=== PATIENT | male | born 1945 | race Caucasian/White ===

== ENCOUNTER 2019-09-03 13:19 | Inpatient (IN) | payer MEDICARE ==
[2019-09-03] VITALS (120 sets, daily range): BP systolic 98–130; BP diastolic 74–113; PULSE 97–153; TEMP 97.6–98.8; O2SAT 94–100
[~2019-09-03] VITALS: Ht 195.6 cm; Wt 119.2 kg
[~2019-09-03 13:19] MED LIST: ASPIRIN E.C. 8181 MG PO; ELIQUIS 5MG PO; NO HOME MEDICATIONS; PRAVACHOL80 MG PO; PROTONIX 40MG T40 MG PO; TAMBOCOR50 MG PO; ZYLOPRIM 300MG300 MG PO
[2019-09-03] MEDS ORDERED: COUMADIN 3MG3 MG/TAB PO (14:53)
[2019-09-03] MEDS ORDERED: PROTONIX 40MG T40 MG PO (14:57)
[2019-09-03 14:58] LABS: ALBUMIN 4.2 gm/dL (3.5-5.0); BILIRUBIN,TOTAL 0.5 mg/dL (0.0-1.0); CALCIUM 9.2 mg/dL (8.4-10.2); CREATININE, serum 1.56 (0.66-1.25); POTASSIUM 4.2 mmol/L (3.4-5.0); TOTAL PROTEIN 7.6 gm/dL (6.4-8.2)
[2019-09-03] MEDS ORDERED: CHLOR TRIMETON 44 MG PO (15:00)
[2019-09-03] MEDS ORDERED: PRINZIDE 25 MG-1 TAB PO (15:02)
[2019-09-03 15:03] LABS: BASO # 0.1 (0.0-0.2); BASO % 1.3 % (0.0-2.0); EOS # 0.3 (0.0-0.7); EOS % 3.5 % (0-4.0); GRAN % 51.4 % (42.2-75.2); HEMATOCRIT 42.1 % (42.0-52.0); HEMOGLOBIN 12.8 g/dl (13.5-18.0); LYMPH # 2.5 (1.2-3.4); LYMPH % 32.5 % (20.0-51.0); MEAN CELL VOLUME 88 fl (80.0-100.0); MEAN CORPUSCULAR HEMOGLOBIN 27 pg (27.0-31.0); MEAN CORPUSCULAR HGB CONC 30 g/dl (33.0-37.0); MEAN PLATELET VOLUME 11.6 fl (7.4-10.4); MONO # 0.9 (0.1-0.6); PLATELET COUNT 238 K/mm3 (130-400); RED BLOOD COUNT 4.79 M/mm3 (4.20-5.60); REDCELL DISTRIBUTION WIDTH-CV 17.2 % (11.5-14.5)
[2019-09-03 15:20] LABS: INR 1.6 (0.8-3.0)
[2019-09-04] VITALS (679 sets, daily range): BP systolic 100–129; BP diastolic 69–121; PULSE 14–139; TEMP 97.7–98.2; O2SAT 78–100
[2019-09-05] VITALS (180 sets, daily range): BP systolic 111–114; BP diastolic 71–98; PULSE 84–107; TEMP 97.7–98.1; O2SAT 81–100
[2019-09-05 05:25] LABS: INR 1.5 (0.8-3.0); PROTHROMBIN TIME 17.2 SECONDS (9.7-12.8)
[2019-09-05] MEDS ORDERED: NORCO 325 MG-101 TAB PO (09:05)
[2019-09-05] MEDS ORDERED: CHLOR TRIMETON 44 MG PO (09:06)
[2019-09-05] MEDS ORDERED: LASIX 40MG TABL40 MG PO (09:07)
[2019-09-05] MEDS ORDERED: TOPROL XL 25MG25 MG PO (09:08)
[2019-09-05] MEDS ORDERED: PACERONE200 MG PO (09:08)
== END 2019-09-05 10:25 | disposition home or self-care (01) | DRG 309 ==
LOC: IMCU 13:19
PROVIDERS: ADMIT Family Medicine
PROC: 5A2204Z Restoration of Cardiac Rhythm, Single (ICD-10-PCS; principal; 2019-09-04)
DX: I48.20 Chronic atrial fibrillation, unspecified (principal); N17.9 Acute kidney failure, unspecified; I25.10 Atherosclerotic heart disease of native coronary artery without angina pectoris; Z95.5 Presence of coronary angioplasty implant and graft; M19.90 Unspecified osteoarthritis, unspecified site; I10 Essential (primary) hypertension; Z86.73 Personal history of transient ischemic attack (TIA), and cerebral infarction without residual deficits; Z79.01 Long term (current) use of anticoagulants
CPT/HCPCS: J0282; J2704; J7030; J7060

== ENCOUNTER 2023-05-01 22:40 | Inpatient (IN) | payer MEDICARE ==
[~2023-05-01] VITALS: Ht 195.6 cm; Wt 114.2 kg
[~2023-05-01 22:40] MED LIST changes: +AMOXICILLIN 8751 TAB PO; +CHLOR TRIMETON 44 MG PO; +CORDARONE200 MG/TAB PO; +COUMADIN 3MG3 MG/TAB PO; +CRESTOR 10MG10 MG PO; +GOOD SENSE400 MG/5 M PO; +IMODIUM A-D2 MG PO; +K-DUR 10 MEQ T10 MEQ PO; +LASIX 40MG TABL40 MG PO; +LIPITOR 40MG TA40 MG PO; +LOPRESSOR 550 MG/TAB PO; +MAG-AL LIQUID 230 ML PO; +MASON NATURAL2000 IU PO; +MULTI VITAMINS1 TAB PO; +NORCO 325 MG-101 TAB PO; +PACERONE200 MG PO; +PEPCID 20MG TAB20 MG PO; +PLAVIX 75MG TAB75 MG PO; +PRINIVIL20 MG PO; +PRINZIDE 25 MG-1 TAB PO; +PROAIR HFA0.09 MG/AC IH; +PULMICORT0.5 MG/2 M IH; +TENORMIN 2525 MG/TAB PO; +TOPROL XL 25MG25 MG PO; +TOPROL XL 50MG50 MG PO; +TYLENOL 325MG325 MG PO; +TYLENOL 500MG500 MG PO; +ULTRAM 50MG TAB50 MG PO; +XALATAN EYE DROPS OD; +XARELTO20 MG PO; +ZITHROMAX 250M250 MG PO; +ZYLOPRIM 100MG100 MG PO; -ZYLOPRIM 300MG300 MG PO; +ZYRTEC 10MG10 MG PO
[2023-05-01] MEDS ORDERED: NS 74 ML IV SCH (22:41)
[2023-05-01] MEDS ORDERED: Iohexol 300 - 100 ML VIAL IV ONE (22:41)
[2023-05-01 23:50] LABS: COLLECTION METHOD CLEAN CATCH
[2023-05-02] VITALS (1053 sets, daily range): BP systolic 102–159; BP diastolic 72–97; PULSE 89–126; TEMP 97–98.6; O2SAT 66–100
[2023-05-02 00:10] LABS: BASO % 0.3 % (0.0-2.0); EOS # 0.1 K/mm3 (0.0-0.7); EOS % 0.4 % (0.0-4.0); GRAN # 9.8 K/mm3 (1.4-6.5); GRAN % 73.7 % (42.2-75.2); HEMATOCRIT 47.2 % (42.0-52.0); HEMOGLOBIN 15.3 g/dl (13.5-18.0); LYMPH # 2.4 K/mm3 (1.2-3.4); LYMPH % 18.4 % (20.0-51.0); MEAN CELL VOLUME 92 fl (80.0-100.0); MEAN CORPUSCULAR HEMOGLOBIN 30 pg (27-31); MEAN CORPUSCULAR HGB CONC 32 g/dl (33.0-37.0); MEAN PLATELET VOLUME 11.3 fl (7.4-10.4); MONO # 0.9 K/mm3 (0.1-0.6); MONO % 6.9 % (1.7-9.3); PLATELET COUNT 184 K/mm3 (130-400); RED BLOOD COUNT 5.12 M/mm3 (4.20-5.60); REDCELL DISTRIBUTION WIDTH-CV 14.6 % (11.5-14.5)
[2023-05-02 00:10] LABS: TRICYCLIC ANTIDEPRESS URINE NEGATIVE (NEGATIVE)
[2023-05-02 00:12] LABS: PH 5.5 (5.0-8.5); SQUAMOUS EPITHELIAL 0-2 /hpf (0-10); URINE APPEARANCE Clear (CLEAR/HAZY); URINE BACTERIA Rare /hpf (NONE SEEN); URINE BLOOD TRACE-INTACT (NEGATIVE); URINE COLOR Yellow (YELLOW); URINE GLUCOSE TRACE (NEGATIVE); URINE KETONE TRACE (NEGATIVE); URINE NITRATE Negative (NEGATIVE); URINE PROTEIN(semi-quant) 1+ (NEGATIVE); URINE UROBILINOGEN 0.2 E.U/dL (0.2-1.0)
[2023-05-02] MEDS ORDERED: MULTIPLE VITAMI1 CAP PO (00:21)
[2023-05-02 00:22] LABS: PARTIAL THROMBOPLASTIN TIME 27.6 SECONDS (26.0-37.0)
[2023-05-02] MEDS ORDERED: ATROVENT I0.2 MG/1 M IH (00:22)
[2023-05-02] MEDS ORDERED: ALBUTEROL0.83 MG/ML IH (00:23)
[2023-05-02] MEDS ORDERED: Albuterol 0.083% Neb Soln 2.5 MG/3 ML UD IH PRN (00:30)
[2023-05-02 00:34] LABS: ALANINE AMINOTRANSFERASE 18 U/L (0-55); ALBUMIN 3.3 gm/dL (3.4-4.8); ALKALINE PHOSPHATASE 105 U/L (40-150); ANION GAP 15 mmol/L (7-16); AST,SGOT 16 U/L (5-34); BILIRUBIN,TOTAL 0.5 mg/dL (0.2-1.2); BLOOD UREA NITROGEN 19 mg/dL (8-26); CALCIUM 8.8 mg/dL (8.4-10.2); CARBON DIOXIDE 16 mmol/L (23-31); CHLORIDE 106 mmol/L (98-107); CREATININE, serum 1.68 mg/dL (0.72-1.25); GLUCOSE 212 mg/dL (70-99); POTASSIUM 3.8 mmol/L (3.5-4.5); SODIUM 137 mmol/L (136-145); TOTAL PROTEIN 7.2 gm/dL (6.2-8.1)
[2023-05-02 00:35] LABS: ALCOHOL(ethanol),MEDICAL < 10 mg/dL (0-10)
[2023-05-02 00:40] LABS: TROPONIN-I 0.015 ng/mL (0.00-0.033)
[2023-05-02 00:53] LABS: ARTERIAL BLD GAS O2 SATURATION 92.6 % (92-100); ARTERIAL BLD GAS TCO2 CT 22.6; ARTERIAL BLOOD GAS BASE EXCESS -5.1 (-2-2); ARTERIAL BLOOD GAS HCO3 21.3 meq/L (22-26); ARTERIAL BLOOD GAS PCO2 44.1 mmHg (35-45)
[2023-05-02] MEDS ORDERED: *Potassium Replacement Protocol MC SCH (02:00)
[2023-05-02] MEDS ORDERED: Potassium Chloride 100 ML IV SCH ×2 (02:00→04:15)
--- NOTE | 2023-05-02 02:06 | NUR ---
PATIENT ARRIVED TO UNIT WITH AGENTS' RECORDS CLERK VIA COT. PATIENT NOT IN ACUTE DISTRESS AT THIS TIME AND ABLE TO ROLL FOR US TO GET SLIDE BOARD UNDER. A AND O X 4.
[2023-05-02] MEDS ORDERED: Albuterol/Ipratropium 3 MG-0.5 MG/3 ML Neb Soln IH PRN (02:15)
[2023-05-02] MEDS ORDERED: LR 1,000 ML IV SCH (02:30)
[2023-05-02] MEDS ORDERED: SENEXON-S 50-81 EACH PO (02:49)
--- NOTE | 2023-05-02 03:43 | NUR ---
PATIENT DOES NOT APPEAR TO BE IN ACUTE DISTRESS AT THIS TIME. PATIENT IS ALERT AND ORIENTED X4 AND ABLE TO COMPLETE NIH STROKE SCALE. LUNGS ARE COARSE - AUDIBLE RATTLE HEARD AT BEDSIDE. STROKE WORKUP IN PROGRESS.
[2023-05-02 06:05] LABS: HEMATOCRIT 45.9 % (42.0-52.0); HEMOGLOBIN 14.9 g/dl (13.5-18.0); MEAN CELL VOLUME 92 fl (80.0-100.0); MEAN CORPUSCULAR HEMOGLOBIN 30 pg (27-31); MEAN CORPUSCULAR HGB CONC 33 g/dl (33.0-37.0); MEAN PLATELET VOLUME 11.4 fl (7.4-10.4); PLATELET COUNT 180 K/mm3 (130-400); REDCELL DISTRIBUTION WIDTH-CV 14.8 % (11.5-14.5)
[2023-05-02 06:18] LABS: CALCIUM 8.7 mg/dL (8.4-10.2); CREATININE, serum 1.76 mg/dL (0.72-1.25); POTASSIUM 4.6 mmol/L (3.5-4.5)
[2023-05-02 06:30] LABS: HYPOCHROMIA 1+; LYMPHOCYTE 5 % (20.0-51.0); NEUTROPHILS 90 % (42.0-75.2); PLATELET ESTIMATE NORMAL (NORMAL)
[2023-05-02] MEDS ORDERED: Ipratropium 0.02% Neb Soln 0.5 MG/2.5 ML UD IH SCH (07:00)
--- NOTE | 2023-05-02 07:30 | NUR ---
Report received from ABELARDO So. Reviewed labs. reviewed IV gtts infusing. Reviewed POC. Pt resting in bed with eyes closed. Call light within reach. Will continue with POC.
[2023-05-02] MEDS ORDERED: Ondansetron 4 MG/2 ML VIAL IV PRN (07:45)
[2023-05-02] MEDS ORDERED: Albuterol/Ipratropium 3 MG-0.5 MG/3 ML Neb Soln IH SCH (08:00)
[2023-05-02] MEDS ORDERED: Cholecalciferol (Vit D3) 1000 Units TAB PO SCH (09:00)
[2023-05-02] MEDS ORDERED: Influenza Virus Vaccine, Hi-Dose Quad '23-24 (65 YR+) 0.7 ML SYRINGE IM SCH (09:00)
[2023-05-02] MEDS ORDERED: Famotidine 20 MG TAB PO SCH (09:00)
[2023-05-02] MEDS ORDERED: Allopurinol 100 MG TAB PO SCH (09:00)
[2023-05-02] MEDS ORDERED: Multivitamin TAB PO SCH (09:00)
[2023-05-02] MEDS ORDERED: Amiodarone 200 MG TAB PO SCH (09:00)
--- NOTE | 2023-05-02 10:38 | NUR ---
Senior Patient Account Representative attempted to meet with patient at bedside, however patient kept his eyes closed and stated "bad" when SW asked how he was doing. Patient would like to rest at this time. SW contacted patient's son, Quang (ph#[phone]) to complete initial intake. Patient lives with Quang here in [place] and sees Dr. Monreal for primary care. Quang picks up patient's medications from [facility] as patient cannot drive. Patient mostly uses a walker for ambulation, however also has a wheelchair at home. Patient needs some assistance with ADLS and has a private duty caregiver, Clarita who comes to the home five days a week for three hours. Quang advised they may be interested in having skilled home health services again through [facility]. Patient does not have DPOA-HC. Quang advised patient is not and only has one child, Quang. Discharge Plan: TBD
[2023-05-02] MEDS ORDERED: Magnesium Sulfate 2 GM/50 ML IV SOLN IV ONE (10:45)
--- NOTE | 2023-05-02 12:53 | NUR ---
Pt left floor for MRI at 1113. Pt heavy 2 assist to chair. Pt returned from MRI at 1140 and returned to floor. Pt going to have MARVIN/Cardioversion. Consent obtained from pt son, Quang. Pt remains NPO for procedure. Pt continues to have left sided facial droop and left sided weakness. Pt is oriented x3. Knows he is in the hospital in [place] but does not know why. Pt states he is "sick". Pt initally stated it was the year 2022 but quickly chnaged his response. Fall precuations in place. Bed alarm activated. Call light within reach. Will continue with POC.
--- NOTE | 2023-05-02 14:14 | NUR ---
Time out completed. Procdure started at 1343. No cardioversion completed. MARVIN completed at 1348. Vital signs remain stable throughout procedure. Post op vital sings being monitored.
--- NOTE | 2023-05-02 18:37 | NUR ---
Pt has not voided in several hours, bladder scan completed, pt had 357ml in bladder. Pt denies feeling the urge to void.
--- NOTE | 2023-05-02 20:00 | NUR ---
BEDSIDE REPORT RECEIVED FROM ABELARDO WILLSON PT RESTING IN BED AND IS A&O AT THIS TIME. PT SITTING UP AND ON 1L VIA NC AT THIS TIME WITH O2SAT WNL. ASSESSMENTS COMPLETED AT THIS TIME AND PATIENT ASSISTED WITH EATING APPLESAUCE- NO ISSUES WITH SWALLOWING NOTED. CARE PLAN REVIEWED, ALL QUESTIONS ANSWERED, BED IN LOW POSITION, AND CALL LIGHT WITHIN REACH. NO ADDITIONAL NEEDS VOICED OR ANTICIPATED AT THIS TIME.
[2023-05-02] MEDS ORDERED: Atorvastatin 40 MG TAB PO SCH (21:00)
[2023-05-02] MEDS ORDERED: Latanoprost 0.005% Ophth Soln 2.5 ML BOTTLE OP SCH (21:00)
--- NOTE | 2023-05-02 22:45 | NUR ---
PT C/O STRUGGLING TO BREATH, O2 VIA NC INCREASED TO 3L AT 2100. AT 2200 RT AT BEDSIDE AND PT CONTINUES TO C/O STRUGGLE. OS SAT REMAINS WNL. BIPAP INITIATED. AT 2245 PT REPORTS THE BIPAP IS NOT WORKING AND RAISED HIS VOICE AT STAFF. BIPAP STOPPED AND NC AT 5L STARTED. Jefferson MARTINEZ APRN, NOTIFIED. DUONEB ORDERED PRN Q4HRS. KARLAB.
--- NOTE | 2023-05-02 22:50 | NUR ---
Nathalie MARTINEZ APRN, NOTIFIED OF PRN LABETALOL ORDER ON PT JUN. VITALS REVIEWED WITH SOME DIASTOLIC PRESSURES OVER 100, AND SYSTOLICS RANGING FROM 120'S-140'S. PROVIDER ORDERED TO HOLD THE MEDICATION AT THIS TIME WE DO NOT WANT TO DECREASE THE SYSTOLIC PRESSURE.
[2023-05-03] VITALS (1237 sets, daily range): BP systolic 118–161; BP diastolic 89–116; PULSE 78–92; TEMP 97–98.4; O2SAT 74–100
--- NOTE | 2023-05-03 01:48 | NUR ---
THIS RT CALLED TO BEDSIDE DUE TO PATIENT YELLING "I CANT BREATHE". THIS RT HAD SPOKEN TO NURSE ABOUT PRIOR BREATH SOUNDS AND PATIENT'S EFFORT HAD BEEN INCREASED AND WONDERING IF PATIENT HAD ANY EXACERBATION OR HISTORY OF FLUID RETENTION. PATIENT IS RECIEVING Q6 DUONEB WITH NO RELIEF TO BRONCHODILATOR. PATIENT WAS PLACED ON CPAP OF 10 AT 2230 ON 05/02/23. THEN WEANED DOWN TO CPAP OF 6 WHEN PATIENT FINALLY RIPPED MASK OFF. PATIENT STILL ON NASAL CANNULA AT 2L, BUT STILL HAVING WET BREATH SOUNDS WITH NO PRODUCTION OF SPUTUM.
[2023-05-03 05:37] LABS: BASO % 0.2 % (0.0-2.0); EOS % 0.1 % (0.0-4.0); HEMATOCRIT 43.9 % (42.0-52.0); HEMOGLOBIN 14.1 g/dl (13.5-18.0); LYMPH # 1.4 K/mm3 (1.2-3.4); LYMPH % 11.7 % (20.0-51.0); MEAN CELL VOLUME 93 fl (80.0-100.0); MEAN CORPUSCULAR HEMOGLOBIN 30 pg (27-31); MEAN CORPUSCULAR HGB CONC 32 g/dl (33.0-37.0); MEAN PLATELET VOLUME 11.2 fl (7.4-10.4); MONO # 1.1 K/mm3 (0.1-0.6); MONO % 9.7 % (1.7-9.3); PLATELET COUNT 165 K/mm3 (130-400); RED BLOOD COUNT 4.74 M/mm3 (4.20-5.60)
[2023-05-03 05:57] LABS: CALCIUM 8.9 mg/dL (8.4-10.2); CHOLESTEROL RISK RATIO 3.6; CREATININE, serum 1.26 mg/dL (0.72-1.25); POTASSIUM 4.3 mmol/L (3.5-4.5)
--- NOTE | 2023-05-03 07:00 | NUR ---
0700 REPORT RECEIVED FROM ABELARDO MULLEN. PT RESTING IN BED. VSS ON 3L O2 PER NC. PT IS ABLE TO STATE NAME AND BUT HAS INTERMITTENT CONFUSION AND REPEATS SAME QUESTIONS MULTIPLE TIMES. BED ALARM ON FOR PT SAFETY. 0830 NURSE ASSISTED PT W/ BREAKFAST. PT TOOK ONE BITE OF PUREED EGGS AND REFUSED THE REST. PT COUGHED REPEATEDLY AFTER TAKING SMALL SIP OF COFFEE. PILLS GIVEN WHOLE IN APPLESAUCE, PT TOLERATED WELL.
--- NOTE | 2023-05-03 09:51 | NUR ---
Initial visit; Patient thanked Social Worker Assistant for looking in on him and offering prayer and listening. Patient spoke of the issues that he was having that brought him to the hospital and has codie that he will be helped and feels that everyone is taking good care of him. Social Worker Assistant offered God's blessings and will follow up while patient is here.
--- NOTE | 2023-05-03 13:05 | NUR ---
PHYSICAL THERAPY IN TO WORK W/ PT, PT STANDS AT BEDSIDE W/ 2:1 ASSIST AND WALKER. LINENS CHANGED. PT REFUSES BATH BUT DOES ALLOW NURSE TO PERFORM PERICARE. PT NOTED TO BE CONFUSED AND AGITATED AFTER WAKING FROM NAP AND C/O DIZZINESS. NEURO CHECK WNL EXCEPT FOR SLIGHT DRIFT TO L LIMBS.
[2023-05-03] MEDS ORDERED: Furosemide 40 MG/4 ML VIAL IV ONE (13:45)
--- NOTE | 2023-05-03 14:04 | NUR ---
Permit Specialist contacted patient's son, Quang to discuss recommendation for SNF and to review post acute rehab options. SW reviewed Medicare.gov list of SNF facilities in [facility], but advised that at this time, [facility] is not accepting new patients and [facility] is full. SW also reviewed swing bed and acute rehab options. Quang would like referrals sent to [facility], [facility], and [facility]. SW gave referral to all three facilities. Discharge Planning: Post Acute Rehab, referrals pending
--- NOTE | 2023-05-03 18:06 | NUR ---
PT COOPERATES W/ CARES AND FOLLOWS INSTRUCTIONS BUT DOES APPEAR TO BE CONFUSED INTERMITTENTLY. PT USES CALL LIGHT OCCASIONALLY BUT ALSO YELLS OUT WHEN NEEDS HELP. CONTINUES TO USE URINAL TO VOID W/ ONLY 2 EPISODES OF INCONTINENCE AFTER LASIX GIVEN. SPEECH/SWALLOW EVAL DONE. DIET CHANGED TO MINCED/MOIST W/ MILDLY THICKENED LIQUIDS.
--- NOTE | 2023-05-03 19:50 | NUR ---
REPORT RECEIVED FROM ABELARDO JACK. PATIENT RESTING IN BED AT THIS TIME. NO SIGNS OF ACUTE DISTRESS NOTED
[2023-05-04] VITALS (512 sets, daily range): BP systolic 104–156; BP diastolic 67–106; PULSE 93–112; TEMP 97.4–98.6; O2SAT 86–100
[2023-05-04 05:44] LABS: BASO % 0.3 % (0.0-2.0); EOS % 0.2 % (0.0-4.0); GRAN # 8.8 K/mm3 (1.4-6.5); GRAN % 71.7 % (42.2-75.2); HEMATOCRIT 44.2 % (42.0-52.0); HEMOGLOBIN 14.6 g/dl (13.5-18.0); LYMPH % 16.5 % (20.0-51.0); MEAN CELL VOLUME 91 fl (80.0-100.0); MEAN CORPUSCULAR HEMOGLOBIN 30 pg (27-31); MEAN CORPUSCULAR HGB CONC 33 g/dl (33.0-37.0); MEAN PLATELET VOLUME 11.3 fl (7.4-10.4); MONO # 1.4 K/mm3 (0.1-0.6); PLATELET COUNT 171 K/mm3 (130-400); RED BLOOD COUNT 4.88 M/mm3 (4.20-5.60); REDCELL DISTRIBUTION WIDTH-CV 14.7 % (11.5-14.5)
[2023-05-04 06:19] LABS: CALCIUM 9.3 mg/dL (8.4-10.2); CREATININE, serum 1.39 mg/dL (0.72-1.25)
[2023-05-04] MEDS ORDERED: Acetaminophen 325 MG TAB PO PRN (07:30)
--- NOTE | 2023-05-04 07:45 | NUR ---
Patient awake and resting in bed; Patient is alert and able to follow simple commands. Patient does have some baseline confusion and is forgetfull. Utilizes his call light repeatedly to make frequent requests from staff. Patient denies any shortness of air and initially denied any pain, then immediately stated that actually he had 10/10 pain to the back of the head. Patient calm and interacting normally with this nurse and does not appear in any distress. PRN tylenol administered. Hospitalist notified about report of headache. Call light left within reach and bed alarm activated.
--- NOTE | 2023-05-04 09:40 | NUR ---
As this nurse was preparing to bring patient upstairs, patient reported mid sternal "chest pain". Unable to rate on a pain scale. Patient has had a productive cought. States that his chest also hurts when he coughs. VS stable. Ordered a STAT EKG. Cardiology and hospitalist notified. MADELAINE Madrid to review EKG and notify of further orders. Ok per hospitalist to bring still patient upstairs.
--- NOTE | 2023-05-04 10:40 | NUR ---
Patient transfered from the bed to a wheelchair to transfer upstairs. Gait- belt, walker and 3 people required for transfer. Patient tolerated transfer well but gait is very slow and he requires reminders to properly use walker and supervisor picking crew his feet while stepping. Assisted up to the medical floor and transfered back to bed with the assistance of PT. JERONIMO, met this nurse in the room upon arrival. Call light within reach and bed alarm activated.
--- NOTE | 2023-05-04 11:10 | NUR ---
patient alert and oriented to self and place but forgetful at times. patient reports pain to his lower back rating it 8/10. patient laying in bed on 3 liters oxygen/nc. patient has left upper and lower weakness. patient unable to stand steady at this time. patient left eye reddened. generalized dryness to skin. patient has a picc line on right upper arm. bed alarm in place. call light within reach. bed at lowest postion.
--- NOTE | 2023-05-04 15:52 | NUR ---
Bobbin Painter spoke with Yajaira at [facility] who advised they can accept patient and can do an admission over the weekend. SW also spoke with Vernon at [facility] who advised that can accept, but not until Sunday. SW contacted patient's son, Quang to update. Quang is agreeable to [facility]. SW advised Quang that patient is telling Hospitalist he does not want to go to rehab. Quang agrees with recommendation for rehab and will talk with patient today. Patient is currently on oxygen, which is not normal for him. SW talked with Quang about picking up a oxygen tank from [place] tomorrow. Qaung is agreeable to this. LAZARUS also updated Yajaira at [facility]. Discharge Plan: [facility] tomorrow
--- NOTE | 2023-05-04 16:20 | NUR ---
RN WENT INTO PATIENT ROOM AND NOTICED PATIENT HAD PULLED OUT PICC LINE. PROVIDER CONTACTED FOR FURTHER INSTRUCTION - DALI STEPHENS INSTRUCTED RN TO CALL PICC TEAM. PICC TEAM GONE FOR DAY. SUGAR INDICATED THAT PERIPHERAL IV NEEDED TO BE INSERTED FOR CONTINUATION OF IV ANTIBIOTICS. RIGHT UPPER ARM PICC SITE CLEANED AND DRESSING APPLIED - BLEEDING STOPPED.
--- NOTE | 2023-05-04 18:10 | NUR ---
PATIENT HAS NOT VOIDED SINCE 1400 - BLADDER SCANNED AND TOTAL OF 331 IN BLADDER.
--- NOTE | 2023-05-04 18:12 | NUR ---
RN FOUND HOME MEDICATIONS IN PATIENT ROOM - SENT TO PHARMACY.
[2023-05-04] MEDS ORDERED: Sennosides/Docusate 8.6-50 MG TAB PO SCH (21:00)
[2023-05-05 08:00] LABS: BASO # 0.1 K/mm3 (0.0-0.2); BASO % 0.6 % (0.0-2.0); EOS # 0.1 K/mm3 (0.0-0.7); EOS % 1.1 % (0.0-4.0); GRAN % 66.8 % (42.2-75.2); HEMATOCRIT 45.9 % (42.0-52.0); HEMOGLOBIN 14.8 g/dl (13.5-18.0); LYMPH % 19.1 % (20.0-51.0); MEAN CELL VOLUME 92 fl (80.0-100.0); MEAN CORPUSCULAR HEMOGLOBIN 30 pg (27-31); MEAN CORPUSCULAR HGB CONC 32 g/dl (33.0-37.0); MEAN PLATELET VOLUME 11.5 fl (7.4-10.4); MONO # 1.3 K/mm3 (0.1-0.6); PLATELET COUNT 170 K/mm3 (130-400); RED BLOOD COUNT 4.98 M/mm3 (4.20-5.60); REDCELL DISTRIBUTION WIDTH-CV 14.7 % (11.5-14.5)
[2023-05-05 08:13] VITALS: BP 135/92; PULSE 99; TEMP 97.5
[2023-05-05 08:17] LABS: CREATININE, serum 1.44 mg/dL (0.72-1.25)
[2023-05-05] MEDS ORDERED: Polyethylene Glycol 3350 17 GM PDS PO SCH (09:00)
--- NOTE | 2023-05-05 10:25 | NUR ---
PT BACK FROM CT AND LAYING IN BED UPON ENTERING. PT ON ROOM AIR AND DENIES PAIN OR SHORTNESS OF BREATH AT THIS TIME, WHEEZING HEARD DURING ASSESSMENT. IV IN LEFT WRIST INFUSING ZOSYN PER ORDER. PT HAD 2 LOOSE BOWEL MOVEMENTS THIS MORINING PER PCT, MIRALAX AND SENOKOT NOT GIVEN. PT HAS SUCTION IN BED AND IS SELF MANAGING ORAL SECRETIONS. PT GIVEN MEDS WITH MILDLY THICKENED WATER, SOME COUGHING NOTED. RIGHT UPPER ARM DRESSING FORM PREVIOUS PICC CLEAN DRY AND INTACT. PT ASKING TO SPEAK TO SOCIAL WORK REGARDING DISCHARGE TRANSPORTATION. PT DENIES NEEDS AT THIS TIME. BED IN LOWEST POSITION, CALL LIGHT IN REACH, BED ALARM ON
[2023-05-05] MEDS ORDERED: OMNICEF 300MG300 MG PO (11:08)
[2023-05-05 12:41] VITALS: BP 111/69; PULSE 103; TEMP 98.1
--- NOTE | 2023-05-05 13:01 | NUR ---
IV AND TELE REMOVED. PT DENIES NEEDS AT THIS TIME AND NOTIFIED THAT WE ARE WAITING FOR HIS SON TO COME BACK FOR TRANSPORT
--- NOTE | 2023-05-05 14:37 | NUR ---
PT CHANGED TO PERSONAL CLOTHES, AND SON AT BEDSIDE AND SENT TO BRING UP CAR. PT TRANSFERRED TO WHEELCHAIR 4 ASSIST. PT ESCORTED TO PERSONAL VEHICLE WITH THIS NURSE, FRANCISCO, ALF. PT GOT INTO VEHICLE 2 ASSIST AND TOLERATED WELL. TRANSFER PACKET GIVEN TO SON
--- NOTE | 2023-05-05 16:05 | NUR ---
Irrigation District Manager contacted ABELARDO Roberto at [facility] and faxed clinical updates. [facility] has accepted patient for admission today. LAZARUS provided Jody's number to Dr. Dela Cruz for provider to provider call. LAZARUS spoke with Dr. Dela Cruz and Elham LOPEZ who advised patient will not need oxygen for transportaion. LAZARUS contacted son, Quang who will provide transport today. Discharge Plan: [facility]
== END 2023-05-05 14:41 | disposition swing bed (61) | DRG 64 ==
LOC: COL.ER 22:40 → ICU 05-02 01:02 → MEDICAL 05-04 10:56
PROVIDERS: Emergency Medicine; Internal Medicine; Nurse Practitioner Family; ADMIT Internal Medicine
PROC: 02HV33Z Insertion of Infusion Device into Superior Vena Cava, Percutaneous Approach (ICD-10-PCS; principal; 2023-05-02)
DX: I63.349 Cerebral infarction due to thrombosis of unspecified cerebellar artery (principal); J69.0 Pneumonitis due to inhalation of food and vomit; J96.01 Acute respiratory failure with hypoxia; I16.1 Hypertensive emergency; I50.30 Unspecified diastolic (congestive) heart failure; R29.810 Facial weakness; R47.81 Slurred speech; R29.708 NIHSS score 8; I48.91 Unspecified atrial fibrillation; Z79.01 Long term (current) use of anticoagulants; R47.1 Dysarthria and anarthria; G47.33 Obstructive sleep apnea (adult) (pediatric); J44.9 Chronic obstructive pulmonary disease, unspecified; Z11.52 Encounter for screening for COVID-19; I45.81 Long QT syndrome; I25.10 Atherosclerotic heart disease of native coronary artery without angina pectoris; Z95.5 Presence of coronary angioplasty implant and graft; R19.7 Diarrhea, unspecified; N18.9 Chronic kidney disease, unspecified
CPT/HCPCS: C1751; J0780; J1920; J1940; J2405; J2543; J2704; J3475; J3480; J7120; Q3014; Q9967

== ENCOUNTER 2023-07-17 23:35 | Emergency (ER) | payer MEDICARE ==
[~2023-07-17] VITALS: Ht 195.6 cm; Wt 109.1 kg
[~2023-07-17 23:35] MED LIST changes: +ALBUTEROL0.83 MG/ML IH; +ATROVENT I0.2 MG/1 M IH; +MULTIPLE VITAMI1 CAP PO; +OMNICEF 300MG300 MG PO; +SENEXON-S 50-81 EACH PO
[2023-07-17 23:41] VITALS: TEMP 97.6
[2023-07-18] MEDS ORDERED: oxyCODONE/Acetaminophen 10-325 MG TAB PO ONE (00:30)
[2023-07-18] MEDS ORDERED: PERCOCET 325 MG1 TA2 PO (02:28)
[2023-07-18] MEDS ORDERED: oxyCODONE/Acetaminophen 7.5-325 MG TAB PO ONE (02:30)
[2023-07-18 03:29] VITALS: BP 131/94; PULSE 75
== END 2023-07-18 03:29 | disposition home or self-care (01) ==
LOC: COL.ER 23:35
DX: S09.90XA Unspecified injury of head, initial encounter (principal); S16.1XXA Strain of muscle, fascia and tendon at neck level, initial encounter; S01.01XA Laceration without foreign body of scalp, initial encounter; S50.811A Abrasion of right forearm, initial encounter; W06.XXXA Fall from bed, initial encounter; W22.09XA Striking against other stationary object, initial encounter